=== PATIENT | male | born 1990 | race Caucasian/White ===

== ENCOUNTER 2020-01-23 12:52 | Emergency (ER) | payer SELFPAY ==
[2020-01-23] MEDS ORDERED: Ibuprofen 600 MG Tab PO ONE (14:10)
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
== END 2020-01-23 14:52 | disposition home or self-care (01) ==
LOC: JP.ED 12:52
DX: S46.912A Strain of unspecified muscle, fascia and tendon at shoulder and upper arm level, left arm, initial encounter (principal); I10 Essential (primary) hypertension; F17.210 Nicotine dependence, cigarettes, uncomplicated; V89.2XXA Person injured in unspecified motor-vehicle accident, traffic, initial encounter
CPT/HCPCS: 73030; 99283; A9270